=== PATIENT | female | born 2000 | race Caucasian/White ===

== ENCOUNTER 2023-10-25 22:12 | Emergency (ER) | payer MEDICAID ==
[~2023-10-25] VITALS: Ht 157.5 cm; Wt 68.0 kg
[2023-10-25] MEDS ORDERED: ZITHROMAX500 MG PO ×2 (22:48→23:43)
[2023-10-25] MEDS ORDERED: IBUPROFEN 600 MG/TAB PO ONE (22:50)
[2023-10-25] MEDS ORDERED: AZITHROMYCIN 250 MG/TAB PO ONE (22:50)
[2023-10-25] MEDS ORDERED: HYDROcodone 5 MG/Acetaminophen 325 MG/COMBO PO ONE (22:50)
[2023-10-25 23:27] VITALS: BP 126/81
[2023-10-26] MEDS ORDERED: ZITHROMAX500 MG PO (07:13)
== END 2023-10-25 23:19 | disposition home or self-care (01) ==
LOC: ED 22:12
DX: H66.93 Otitis media, unspecified, bilateral (principal); U07.1 COVID-19